=== PATIENT | male | born 1975 | race Caucasian/White ===

== ENCOUNTER 2020-08-11 10:56 | Outpatient (RCR) | payer MEDICAID, SELFPAY | END 2020-08-11 23:59 | disposition home or self-care (01) | LOC: ANHAUDIO 10:56 | PROVIDERS: PCP Internal Medicine; Visit Provider Internal Medicine | DX: Z46.1 Encounter for fitting and adjustment of hearing aid (principal) | CPT/HCPCS: 99199 ==

== ENCOUNTER 2020-12-14 08:30 | Outpatient (RCR) | payer MEDICAID, SELFPAY | END 2020-12-14 23:59 | disposition home or self-care (01) | LOC: ANHAUDIO 08:30 | PROVIDERS: PCP Internal Medicine; Visit Provider Internal Medicine | DX: Z46.1 Encounter for fitting and adjustment of hearing aid (principal) | CPT/HCPCS: 92557; 92567; 99199; V5264 ==

== ENCOUNTER 2021-11-11 12:54 | Outpatient (RCR) | payer OTHER, SELFPAY | END 2021-11-11 23:59 | disposition home or self-care (01) | LOC: ANHAUDIO 12:54 | PROVIDERS: PCP Internal Medicine; Visit Provider Internal Medicine | DX: P59.9 Neonatal jaundice, unspecified (principal) | CPT/HCPCS: 99199 ==

== ENCOUNTER 2022-07-18 08:54 | Outpatient (RCR) | payer OTHER, SELFPAY | END 2022-07-18 23:59 | disposition home or self-care (01) | LOC: ANHAUDIO 08:54 | PROVIDERS: PCP Internal Medicine; Visit Provider Internal Medicine | DX: Z46.1 Encounter for fitting and adjustment of hearing aid (principal) | CPT/HCPCS: 92593 ==

== ENCOUNTER 2025-04-09 14:34 | Outpatient (RCR) | payer SELFPAY | END 2025-04-09 23:59 | disposition home or self-care (01) | LOC: ANHAUDIO 14:34 | PROVIDERS: PCP Internal Medicine; Visit Provider Internal Medicine | DX: Z46.1 Encounter for fitting and adjustment of hearing aid (principal) | CPT/HCPCS: 92593 ==